=== PATIENT | female | born 1990 | race Caucasian/White ===

== ENCOUNTER 2019-02-22 16:39 | Observation (INO) | payer OTHER ==
[~2019-02-22] VITALS: Ht 167.6 cm; Wt 89.8 kg
[2019-02-22 17:37] VITALS: BP 135/80
[2019-02-22] MEDS ORDERED: PNV1TABL54 PO (17:47)
[2019-02-23] MEDS ORDERED: PREN-217 PO (10:42)
[2019-02-25] MEDS ORDERED: IBUP-2071 PO (11:22)
[2019-02-25] MEDS ORDERED: DOCU-275 PO (11:23)
[2019-02-25] MEDS ORDERED: FERR-89 PO (11:23)
== END 2019-02-22 19:20 | disposition home or self-care (01) ==
LOC: 4S 16:39
PROVIDERS: ADMIT Obstetrics & Gynecology; ATTEND Obstetrics & Gynecology
DX: O21.8 Other vomiting complicating pregnancy (principal); Z3A.38 38 weeks gestation of pregnancy
CPT/HCPCS: 81002; G0378